=== PATIENT | female | born 1940 | race Two or more races ===

== ENCOUNTER 2018-10-04 08:31 | Emergency (ER) | payer OTHER ==
[~2018-10-04] VITALS: Ht 160 cm; Wt 66.0 kg
[2018-10-04 08:36] VITALS: BP 155/77
[2018-10-04] MEDS: ACETAMINOPHEN 500MG TABLET PO ONE (10:38)
== END 2018-10-04 10:39 | disposition home or self-care (01) ==
LOC: ER 08:31
DX: S20.219A Contusion of unspecified front wall of thorax, initial encounter (principal); Z88.0 Allergy status to penicillin; V49.88XA Car occupant (driver) (passenger) injured in other specified transport accidents, initial encounter; Y93.89 Activity, other specified; Y92.89 Other specified places as the place of occurrence of the external cause; Y99.8 Other external cause status
CPT/HCPCS: 71045; 93005; 99283